=== PATIENT | female | born 1955 | race Caucasian/White ===

== ENCOUNTER 2021-01-23 14:27 | Outpatient (REF) | payer MEDICARE, SELFPAY | END 2021-01-23 14:28 | disposition home or self-care (01) | LOC: HO.LAB 14:27 | PROVIDERS: Visit Provider Nurse Practitioner Family | DX: Z20.822 Contact with and (suspected) exposure to COVID-19 (principal); R52 Pain, unspecified | CPT/HCPCS: U0003; U0005 ==